=== PATIENT | female | born 2000 | race Caucasian/White ===

== ENCOUNTER 2018-07-29 01:45 | Emergency (ER) | payer OTHER ==
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
[2018-07-29 02:16] VITALS: BP 124/85; PULSE 55; RESP 16; TEMP 97.8; O2SAT 98
== END 2018-07-29 02:40 | disposition home or self-care (01) ==
LOC: C.ER 01:45
DX: M54.5 Low back pain (principal); V89.2XXA Person injured in unspecified motor-vehicle accident, traffic, initial encounter